=== PATIENT | female | born 1995 | race Two or more races ===

== ENCOUNTER 2024-12-07 05:37 | Emergency (ER) | payer MEDICAID, SELFPAY ==
[2024-12-07 05:39] VITALS: BMI 39.8
[2024-12-07 05:57] VITALS: BP 126/85; PULSE 82; RESP 16; TEMP 37.2; O2SAT 98
--- NOTE | 2024-12-07 06:18 | EDNOTE_ITS ---
ED Dental RME/HPI General Chief complaint: Dental/Oral/Throat Stated complaint: TOOTH PAIN Time Seen by Provider: 12/07/24 06:14 Source: patient Arrival date/time: 12/07/24 05:37 29-year-old female with no known medical history presents to the emergency room with a chief complaint of right-sided facial swelling, and right upper tooth tenderness x 2 days Mode of arrival: ambulatory Limitations: no limitations Related Data Previous Rx's ?Medication ?Instructions ?Recorded ibuprofen 800 mg tablet 800 mg PO TID PRN pain #30 t abs 03/25/19 albuterol sulfate 90 mcg/actuation 1 puff inhalation Q 4H PRN 12/25/19 aerosol inhaler (ProAir HFA) shortness of breath or wh eezing #8.5 grams azithromycin 250 mg tablet See Rx Instructions PO .COM PLEX #6 12/25/19 tabs ibuprofen 800 mg tablet 800 mg PO TID PRN pain #30 t abs 03/25/20 albuterol sulfate 90 mcg/actuation 2 puff inhalation Q 6H PRN 03/08/21 aerosol inhaler (Ventolin HFA) bronchospasm #6.7 grams promethazine-DM 6.25 mg-15 mg/5 mL 5 ml PO Q6H #240 mL 03/08/21 oral syrup amoxicillin 500 mg capsule 500 mg PO BID #20 caps 11/16 10/09 hydrocodone 5 mg-acetaminophen 325 1 tab PO BID PRN pa in #10 tabs 12/07/24 mg tablet Allergies Allergy/AdvReac Type Severity Reaction Status Date / Time No Known Allergies Allergy Verified 12/07/24 05:45 Review of Systems Review of Systems Systems Reviewed: All systems reviewed, normal except as documented Constitutional Constitutional: Reports system reviewed and no additional complaints, except as documented, Denies fatigue, Denies fever(s), Denies headache(s) and Denies weakness Eyes Eyes: Reports system reviewed and no additional complaints, except as documented, Denies blurry vision and Denies change in vision ENT Ears, Nose, Mouth, and Throat: Reports system reviewed and no additional complaints, except as documented, Reports dental pain, Denies otalgia, Denies headache(s), Denies nasal congestion, Denies throat swelling and Denies vertigo Cardiovascular Cardiovascular: Reports system reviewed and no additional complaints, except as documented, Denies chest pain, Denies dyspnea and Denies dyspnea on exertion Respiratory Respiratory: Reports system reviewed and no additional complaints, except as documented, Denies chest congestion, Denies cough, Denies dyspnea, Denies dyspnea on exertion and Denies wheezing Gastrointestinal Gastrointestinal: Reports system reviewed and no additional complaints, except as documented, Denies abdominal pain, Denies cramping, Denies nausea and Denies vomiting Genitourinary Genitourinary: Reports system reviewed and no additional complaints, except as documented Musculoskeletal Musculoskeletal: Reports system reviewed and no additional complaints, except as documented and Denies back pain Integumentary/Breasts Skin/Breast: Reports system reviewed and no additional complaints, except as documented and Denies wounds Neurologic Neurologic: Reports system reviewed and no additional complaints, except as documented, Denies confusion, Denies headache(s), Denies lack of coordination, Denies vertigo and Denies weakness Psychiatric Psychiatric: Reports system reviewed and no additional complaints, except as documented, Denies anxiety, Denies confusion, Denies depression, Denies paranoia, Denies suicidal ideation and Denies tactile hallucinations Endocrine Endocrine: Reports system reviewed and no additional complaints, except as documented and Denies fatigue Hematologic/Lymphatic Hematologic/Lymphatic: Reports system reviewed and no additional complaints, except as documented and Denies lymphadenopathy Allergic/Immunologic Allergic/Immunologic: Reports system reviewed and no additional complaints, except as documented, Denies throat swelling, Denies urticaria and Denies wheezing Past Medical History Past Medical History CARDIAC: Negative Congestive Heart Failure RESPIRATORY: Negative Chronic Obstructive Pulmonary Disease (COPD) GENITOURINARY: Negative Renal Disease ENDOCRINE: Negative Diabetes Mellitus Type 1 or Diabetes Mellitus Type 2 Social History SMOKING STATUS: Never smoker ED Exam General Limitations: Present no limitations General appearance: Present alert and in no apparent distress Head Head exam: Present atraumatic Eye Eye exam: Present normal appearance, PERRL and EOMI ENT ENT exam: Present normal exam, normal oropharynx and mucous membranes moist Expanded ENT Exam External ear exam: Present normal external inspection Mouth exam: Present normal external inspection Teeth exam: Present dental caries, fractured tooth # and dental tenderness # Teeth numbered: 2 1. Dental Tenderness Neck Neck exam: Present normal inspection, full ROM and trachea midline Chest Chest inspection: Present normal inspection and symmetric chest wall rise Respiratory Respiratory exam: Present normal lung sounds bilaterally Cardiovascular Cardiovascular exam: Present regular rate, normal rhythm and normal heart sounds Abdominal Exam Abdominal exam: Present soft and normal bowel sounds Extremities Exam Extremities exam: Present normal inspection and full ROM Back Exam Back exam: Present normal inspection and full ROM Neurological Exam Neurological exam: Present alert, oriented X3 and CN II-XII intact Psychiatric Psychiatric exam: Present normal affect and normal mood Skin Skin exam: Present warm, dry, intact and normal color Course Quality Measures none Orders Category Date Time Status Acetaminophen Tab [Tylenol ES Tab] Med 12/07/24 06:50 Discontinued 1,000 mg PO X1 ONE Clindamycin Vial [Cleocin vial] Med 12/07/24 06:17 Discontinued 600 mg IM X1 ONE HYDROcodone*/APAP 5/325 [[place] 5/325] Med 12/07/24 06:49 Discontinued 1 tab PO X1 ONE Ketorolac Inj [Toradol Inj] Med 12/07/24 06:17 Discontinued 30 mg IM X1 ONE Vital Signs Vital signs: Vital Signs Temperature 98.9 F 12/07/24 05:57 Pulse Rate 82 12/07/24 05:57 Respiratory Rate 16 12/07/24 05:57 Blood Pressure 126/85 H 12/07/24 05:57 Pulse Oximetry (%) 98 12/07/24 05:57 Oxygen Delivery Method Room Air 12/07/24 05:57 O2 saturation 98% within normal limits Dental / Oral MDM Narrative MDM Narrative:: 29-year-old female with no known medical history presents to the emergency room with a chief complaint of right-sided facial swelling, and right upper tooth tenderness x 2 days Patient is hemodynamically stable and in no apparent distress. She is afebrile not tachycardic and not tachypneic Physical examination shows tenderness and pain to the right upper molars. There is some dental tenderness with touch as well as dental fractures. Pain medication and antibiotics were given to the patient Patient was educated to follow-up with her dentist Patient was discharged and educated to follow-up with primary care provider in the next 24 to 48 hours and return to the emergency room for any evidence of worsening signs or symptoms Patient data External records reviewed:: [facility] previous records Clinical information provided by:: patient Social determinants that could affect healthcare access:: none Patient has the following chronic illnesses:: No chronic illness How is presenting disease/condition affected by chronic disease/condition?: no chronic disease Evaluation data The following diagnostics were reviewed and interpreted by me:: lab results Lab and/or radiology exams considered but not ordered:: Labs and radiology exams considered and ordered Interpretation Summary: N/A Medications / Prescriptions Medications or Prescriptions considered but not ordered:: Medication given Medication administrations:: Medication Administration History Discontinued Medications Acetaminophen (Acetaminophen 500 Mg Tablet) 1,000 mg PO X1 ONE Stop: 12/07/24 06:51 Last Admin: 12/07/24 06:58 Dose: 1,000 mg Documented By: CHERY Hydrocodone Bitart/Acetaminophen (Hydrocodone/Apap 5/325 Tablet) 1 tab PO X1 ONE Stop: 12/07/24 06:50 Clindamycin Phosphate (Clindamycin Phos Inj 150 Mg/Ml Vial 6 Ml) 600 mg IM X1 ONE Stop: 12/07/24 06:18 Last Admin: 12/07/24 06:59 Dose: 600 mg Documented By: CHERY Ketorolac Tromethamine (Ketorolac Inj 60 Mg/2 Ml Vial) 30 mg IM X1 ONE Stop: 12/07/24 06:18 Last Admin: 12/07/24 07:01 Dose: Not Given Documented By: CHERY Non-Admin Reason: Discontinued Medication given Consultations Consultation(s) initiated? (list below): No Diagnosis Dental Differential Diagnosis: gingival abscess, dental caries, toothache, dental abscess and fracture of tooth Most likely diagnosis given after review of the tests above:: Toothache Admission Indicated Admission indicated?: not indicated Admission Request Was there a request for admission?: No Disposition Plan Disposition Plan: Discharge Discharge Attestation Discharge Attestation: The patient and all family members were given an opportunity to ask questions and understood the discharge instructions. Discharge instructions specifically effects, indications for sooner follow up or return to the emergency department, and the expected course of current diagnosis. Patient condition: Stable Discharge Plan Plan Patient Disposition: HOME (Self Care) Discharge Disposition comment: Stable Prescriptions/Referrals Prescriptions/Med Rec: New amoxicillin 500 mg capsule 500 mg PO BID Qty: 20 0RF hydrocodone-acetaminophen 5-325 mg tablet 1 tab PO BID MDD 10mg PRN (Reason: pain) Qty: 10 0RF No Action ibuprofen 800 mg tablet 800 mg PO TID PRN (Reason: pain) Qty: 30 0RF ibuprofen 800 mg tablet 800 mg PO TID PRN (Reason: pain) Qty: 30 0RF azithromycin 250 mg tablet See Rx Instructions .ROUTE .COMPLEX Qty: 6 0RF Rx Instructions: take 500 mg today (day 1), then 250 mg for 4 days (days 2-5) albuterol sulfate [ProAir HFA] 90 mcg/actuation HFA aerosol inhaler 1 puff IH Q4H PRN (Reason: shortness of breath or wheezing) Qty: 8.5 0RF promethazine-DM 6.25-15 mg/5 mL syrup 5 ml PO Q6H Qty: 240 0RF albuterol sulfate [Ventolin HFA] 90 mcg/actuation HFA aerosol inhaler 2 puff INH Q6H PRN (Reason: bronchospasm) Qty: 6.7 0RF Problem List Clinical Impression: Toothache Patient/Caregiver Discharge Instructions Education Materials: ED Dental Pain Additional Instructions: Please follow-up with your dentist in the next 24 to 48 hours. Antibiotics are sent to your pharmacy please pick them up and take them as indicated For any evidence of worsening signs or symptoms return the emergency room immediately Print Language: [place] Stand Alone Forms: [employer]i Award Info., Patient Portal Info Letter
[2024-12-07] MEDS: ACETAMINOPHEN 500 MG TABLET 1000 MG PO (06:58)
[2024-12-07] MEDS: CLINDAMYCIN PHOS INJ 150 MG/ML VIAL 6 ML 600 MG IM (06:59)
== END 2024-12-07 07:23 | disposition home or self-care (01) ==
LOC: SERX 07:25
PROVIDERS: Emergency Provider Family Medicine; PCP Family Medicine
DX: K08.89 Other specified disorders of teeth and supporting structures (principal)
CPT/HCPCS: 96372; 99283; J0736; A9270

== ENCOUNTER 2024-12-09 20:07 | Emergency (ER) | payer MEDICAID, SELFPAY ==
[2024-12-09 20:07] VITALS: BMI 39.8
[2024-12-09 20:23] VITALS: BP 130/86; PULSE 81; RESP 20; TEMP 37.5; O2SAT 97
--- NOTE | 2024-12-09 20:36 | EDNOTE_ITS ---
ED Abdominal Pain RME/HPI General Chief Complaint: Abdominal Pain Stated complaint: ABDOMINAL CRAMPING, Time seen by provider: 12/09/24 20:25 Arrival date/time: 12/09/24 20:07 Source: patient Mode of arrival: ambulatory Limitations: no limitations RME / HPI RME / HPI narrative: 29-year-old female presents to the ED with a 2-day history of lower abdominal cramping and nausea. Her last menstrual period was on October 28 which was normal. She denies any fever or chills, dysuria or frequency. Related Data Previous Rx's ?Medication ?Instructions ?Recorded ibuprofen 800 mg tablet 800 mg PO TID PRN pain #30 t abs 03/25/19 albuterol sulfate 90 mcg/actuation 1 puff inhalation Q 4H PRN 12/25/19 aerosol inhaler (ProAir HFA) shortness of breath or wh eezing #8.5 grams azithromycin 250 mg tablet See Rx Instructions PO .COM PLEX #6 12/25/19 tabs ibuprofen 800 mg tablet 800 mg PO TID PRN pain #30 t abs 03/25/20 albuterol sulfate 90 mcg/actuation 2 puff inhalation Q 6H PRN 03/08/21 aerosol inhaler (Ventolin HFA) bronchospasm #6.7 grams promethazine-DM 6.25 mg-15 mg/5 mL 5 ml PO Q6H #240 mL 03/08/21 oral syrup amoxicillin 500 mg capsule 500 mg PO BID #20 caps 11/16 10/09 hydrocodone 5 mg-acetaminophen 325 1 tab PO BID PRN pa in #10 tabs 12/07/24 mg tablet Allergies Allergy/AdvReac Type Severity Reaction Status Date / Time No Known Allergies Allergy Verified 12/07/24 05:45 Review of Systems Review of Systems Systems Reviewed: All systems reviewed, normal except as documented Past Medical History Past Medical History CARDIAC: Negative Congestive Heart Failure RESPIRATORY: Negative Chronic Obstructive Pulmonary Disease (COPD) GENITOURINARY: Negative Renal Disease ENDOCRINE: Negative Diabetes Mellitus Type 1 or Diabetes Mellitus Type 2 Social History SMOKING STATUS: Never smoker ED Exam Narrative Physical exam: Alert and oriented 29-year-old female, no acute distress. Lungs are clear, regular rate and rhythm without murmurs. Abdomen is soft with minimal bilateral lower pelvic tenderness. General Limitations: Present no limitations Course Course Course Narrative: 29-year-old female presents to the ED with a 2-day history of lower abdominal cramping and nausea. Her last menstrual period was on October 28 which was normal. She denies any fever or chills, dysuria or frequency. Alert and oriented 29-year-old female, no acute distress. Lungs are clear, regular rate and rhythm without murmurs. Abdomen is soft with minimal bilateral lower pelvic tenderness. CBC reveals a white count of 13.1, normal H&H and platelets, chemistry panel is essentially normal with normal renal and liver functions. Patient is a positive. Urinalysis and quantitative hCG are currently pending. Transvaginal ultrasound: FINDINGS: Uterus 9.2 cm, intrauterine gestational sac 1.2 cm corresponds to 6 weeks 0 days. gestational age. No pole. No cardiac activity. Right ovary 4.6 cm arterial flow 14 mm cyst. Left ovary 2.6 cm arterial flow. IMPRESSION: Empty intrauterine gestational sac corresponding to 6 weeks 0 days gestational age. Short-term follow-up pelvic sonography is needed to document viability. Quality Measures none Orders Category Date Time Status US OB transvaginal Stat Exams 12/09/24 20:42 Completed ABO/RH Type Stat Lab 12/09/24 22:36 Completed Beta HCG,Quantitative Stat Lab 12/09/24 22:36 Completed CBC Stat Lab 12/09/24 22:36 Completed CMP [Comprehensive Metabolic Panel] Stat Lab 12/09/24 22:36 Completed Urinalysis Stat Lab 12/09/24 23:18 Completed Urine Culture Stat Lab 12/09/24 23:18 Received Vital Signs Vital signs: Vital Signs Temperature 99.5 F 12/09/24 20:23 Pulse Rate 81 12/09/24 20:23 Respiratory Rate 20 12/09/24 20:23 Blood Pressure 130/86 H 12/09/24 20:23 Pulse Oximetry (%) 97 12/09/24 20:23 Oxygen Delivery Method Room Air 12/09/24 20:23 Abdominal Pain MDM Patient data External records reviewed:: None Clinical information provided by:: patient Social determinants that could affect healthcare access:: none Patient has the following chronic illnesses:: None How is presenting disease/condition affected by chronic disease/condition?: no chronic disease Evaluation data The following diagnostics were reviewed and interpreted by me:: lab results and radiology exam(s) Lab and/or radiology exams considered but not ordered:: N/A Medications / Prescriptions Medications or Prescriptions considered but not ordered:: N/A Medication administrations:: None Consultations Consultation(s) initiated? (list below): No Diagnosis Differential diagnosis abdominal pain: abdominal pain and other (Threatened miscarriage) Most likely diagnosis given after review of the tests above:: Ovarian Cyst, Early Admission Indicated Admission indicated?: not indicated Admission Request Was there a request for admission?: No Disposition Plan Disposition Plan: Discharge Discharge Attestation Discharge Attestation: The patient and all family members were given an opportunity to ask questions and understood the discharge instructions. Discharge instructions specifically effects, indications for sooner follow up or return to the emergency department, and the expected course of current diagnosis. Patient condition: Stable Discharge Plan Plan Patient Disposition: HOME (Self Care) Discharge Disposition comment: Stable Prescriptions/Referrals Prescriptions/Med Rec: No Action ibuprofen 800 mg tablet 800 mg PO TID PRN (Reason: pain) Qty: 30 0RF ibuprofen 800 mg tablet 800 mg PO TID PRN (Reason: pain) Qty: 30 0RF azithromycin 250 mg tablet See Rx Instructions .ROUTE .COMPLEX Qty: 6 0RF Rx Instructions: take 500 mg today (day 1), then 250 mg for 4 days (days 2-5) albuterol sulfate [ProAir HFA] 90 mcg/actuation HFA aerosol inhaler 1 puff IH Q4H PRN (Reason: shortness of breath or wheezing) Qty: 8.5 0RF promethazine-DM 6.25-15 mg/5 mL syrup 5 ml PO Q6H Qty: 240 0RF albuterol sulfate [Ventolin HFA] 90 mcg/actuation HFA aerosol inhaler 2 puff INH Q6H PRN (Reason: bronchospasm) Qty: 6.7 0RF amoxicillin 500 mg capsule 500 mg PO BID Qty: 20 0RF hydrocodone-acetaminophen 5-325 mg tablet 1 tab PO BID MDD 10mg PRN (Reason: pain) Qty: 10 0RF Referrals: No Primary/Family,Physician [Primary Care Provider] - In 1 week Problem List Clinical Impression: Intrauterine Patient/Caregiver Discharge Instructions Education Materials: ED Abdominal Pain, Early Additional Instructions: You will need a repeat ultrasound and blood test on Tuesday. Follow-up with your primary care physician in 24 to 48 hours. Return to the ED for any new or worsening symptoms. Print Language: Polish Stand Alone Forms: [employer] Award Info., Patient Portal Info Letter PA/NUCLEAR REACTOR OPERATOR Supervising Physician PA/NUCLEAR REACTOR OPERATOR Supervising Physician: Dr. Duarte
--- NOTE | 2024-12-09 20:42 | XR_ITS ---
Examination: OB Transvaginal ultrasound of the pelvis, complete Technique: Transvaginal sonographic images pelvis performed using sultana scale imaging Exam date and time: December 09, 2024 1016 hours INDICATIONS: Pelvic cramping today FINDINGS: Uterus 9.2 cm, intrauterine gestational sac 1.2 cm corresponds to 6 weeks 0 days gestational age No pole No cardiac activity Right ovary 4.6 cm arterial flow 14 mm cyst Left ovary 2.6 cm arterial flow IMPRESSION: Empty intrauterine gestational sac corresponding to 6 weeks 0 days gestational age. Short-term follow-up pelvic sonography is needed to document viability.
[2024-12-09 22:51] LABS: Basophils % (Auto) 0 % (0-2.5); Eosinophils # (Auto) 0.2 Thou/mm3 (0.0-0.5); Eosinophils % (Auto) 1 % (0-10); Hemoglobin 12.3 g/dL (12.0-16.0); Immature Granulocytes % (Auto) 1 % (0-0); Immature Granulocytes Auto 0.07 Thou/mm3 (0.00-0.00); Lymphocytes # (Auto) 2.7 Thou/mm3 (1.0-4.8); Lymphocytes % (Auto) 21 % (10-50); Mean Corpuscular HGB Conc 33.2 g/dl (31.0-37.0); Mean Corpuscular Hemoglobin 27.6 pg (25.0-35.0); Mean Corpuscular Volume 83 fL (80-100); Monocytes # (Auto) 1.2 Thou/mm3 (0.0-0.8); Monocytes % (Auto) 9 % (0-12); Neutrophils # (Auto) 8.9 Thou/mm3 (1.8-7.7); Neutrophils % (Auto) 68 % (37-80); Nucleated Red Blood Cell % 0 /100 WBC (0); Platelet Count 368 Thou/mm3 (140-440); RDW Standard Deviation 39.6 fL (36.4-46.3); Red Blood Count 4.45 Miln/mm3 (4.00-5.20); White Blood Count 13.1 Thou/mm3 (3.6-11.0)
[2024-12-09 23:27] LABS: Alanine Aminotransferase 26 U/L (10-49); Albumin, Serum 4.7 gm/dL (3.5-5.0); Albumin/Globulin Ratio 1.5 (1.2-2.2); Alkaline Phosphatase 110 U/L (46-116); Anion Gap 10 (7-16); Aspartate Amino Transferase 23 U/L (0-34); BUN/Creatinine Ratio 7 Ratio (12-20); Bilirubin,Total 0.4 mg/dL (0.3-1.2); Blood Urea Nitrogen < 5 mg/dL (9-23); Calcium 10.2 mg/dL (8.3-10.6); Calcium (Corrected) 10.2 mg/dL (8.5-10.1); Carbon Dioxide 24.4 mMol/L (20.0-31.0); Chloride 103 mMol/L (98-107); Creatinine (Component) 0.7 mg/dL (0.6-1.3); Estimated Creatinine Clearance 132.8 mL/min (>60); Globulin 3.2 gm/dL (2.3-3.5); Glucose 81 mg/dL (74-106); Osmolality,Calculated 270 (275-295); Potassium 3.6 mMol/L (3.4-5.1); Sodium 137 mMol/L (136-145); Total Protein 7.9 gm/dL (5.7-8.2); eGFR > 60 See Note
[2024-12-09 23:28] LABS: Collection Type, Urine Clean Catch
[2024-12-09 23:57] LABS: Beta HCG,Quantitative 19774 mIU/mL (<5.0)
[2024-12-10 00:21] LABS: Bacteria,Urine Rare; Bilirubin,Urine Negative (Negative); Blood,Urine Negative (Negative); Clarity,Urine Clear (Clear/Hazy); Color,Urine Colorless (Lt Yel-Yel); Glucose, Urine Trace (Negative); Ketones,Urine Negative (Negative); Leukocyte Esterase,Urine Positive (Negative); Nitrite,Urine Negative (Negative); PH,Urine 6.5 (5.0-7.0); Protein,Urine Negative (Neg - Trace); RBC,Urine 1 /hpf (0-3); Specific Gravity,Urine 1.004 (1.001-1.035); Squamous Epithelial Cell,Urine 3 /hpf (0-5); Urobilinogen,Urine Negative mg/dL (0.0-1.0); WBC,Urine 1 /hpf (0-5)
[2024-12-10 02:36] VITALS: RESP 18
== END 2024-12-10 02:36 | disposition home or self-care (01) ==
PROVIDERS: Physician Assistant; Emergency Provider Emergency Medicine
DX: O26.891 Other specified pregnancy related conditions, first trimester (principal); R10.9 Unspecified abdominal pain; Z3A.01 Less than 8 weeks gestation of pregnancy
CPT/HCPCS: 36415; 76817; 80053; 81001; 84702; 85025; 86900; 86901; 87086; 99284

== ENCOUNTER 2024-12-26 13:42 | Emergency (ER) | payer MEDICAID, SELFPAY ==
[2024-12-26 13:43] VITALS: BMI 39.8
[2024-12-26 13:48] VITALS: BP 126/86; PULSE 90; RESP 20; TEMP 36.8; O2SAT 96
--- NOTE | 2024-12-26 13:50 | XR_ITS ---
Examination: Complete OB ultrasound, less than 14 weeks, transabdominal Date and time of exam: December 26, 2024 1434 hours INDICATIONS: Vaginal bleeding and pelvic pain beginning one hour ago Technique: Obstetrical ultrasound images less than 14 weeks performed via transabdominal imaging Findings: A normal shaped single intrauterine gestation is present in the uterus. CRL 1.4 cm corresponds to 7 weeks 5 day gestational age Cardiac motion 155 BPM Adjacent subchorionic hemorrhage 28 x 6 x 8 mm Ultrasonographic survey of visible and placental structures unremarkable. Amniotic fluid volume appears appropriate for this estimated gestational age. Right ovary 3.4 cm arterial flow Left ovary 2.7 cm arterial flow IMPRESSION: Viable intrauterine gestation 7 weeks 5 days Given the subchorionic hemorrhage, consider short-term follow-up pelvic sonography
--- NOTE | 2024-12-26 13:50 | PD.EDPREG ---
ED OB Contraction Preg RMI/HPI General Chief complaint: OB/Uterine Contractions Stated complaint: 8 WKS PREG, BLEEDING STARTED 1 HR AGO; SENT BY OB. Time Seen by Provider: 12/26/24 13:47 Source: patient Arrival date/time: 12/26/24 13:42 29-year-old female with no known medical history presents to the emergency room with a chief complaint of vaginal bleeding x 1 hour. Patient is currently 8 weeks . Mode of arrival: ambulatory Limitations: no limitations Related Data Previous Rx's ?Medication ?Instructions ?Recorded ibuprofen 800 mg tablet 800 mg PO TID PRN pain #30 tabs 03/25/19 albuterol sulfate 90 mcg/actuation 1 puff inhalation Q4H PRN 12/25/19 aerosol inhaler (ProAir HFA) shortness of breath or wheezing #8.5 grams azithromycin 250 mg tablet See Rx Instructions PO .COMPLEX #6 12/25/19 tabs ibuprofen 800 mg tablet 800 mg PO TID PRN pain #30 tabs 03/25/20 albuterol sulfate 90 mcg/actuation 2 puff inhalation Q6H PRN 03/08/21 aerosol inhaler (Ventolin HFA) bronchospasm #6.7 grams promethazine-DM 6.25 mg-15 mg/5 mL 5 ml PO Q6H #240 mL 03/08/21 oral syrup amoxicillin 500 mg capsule 500 mg PO BID #20 caps 12/07/24 hydrocodone 5 mg-acetaminophen 325 1 tab PO BID PRN pain #10 tabs 12/07/24 mg tablet cephalexin 500 mg capsule 500 mg PO BID 7 days #14 caps 12/26/24 Allergies Allergy/AdvReac Type Severity Reaction Status Date / Time No Known Allergies Allergy Verified 12/26/24 13:45 Review of Systems Review of Systems Systems Reviewed: All systems reviewed, normal except as documented Constitutional Constitutional: Reports system reviewed and no additional complaints, except as documented, Denies fatigue, Denies fever(s), Denies headache(s) and Denies weakness Eyes Eyes: Reports system reviewed and no additional complaints, except as documented, Denies blurry vision and Denies change in vision ENT Ears, Nose, Mouth, and Throat: Reports system reviewed and no additional complaints, except as documented, Denies otalgia, Denies headache(s), Denies nasal congestion, Denies throat swelling and Denies vertigo Cardiovascular Cardiovascular: Reports system reviewed and no additional complaints, except as documented, Denies chest pain, Denies dyspnea and Denies dyspnea on exertion Respiratory Respiratory: Reports system reviewed and no additional complaints, except as documented, Denies chest congestion, Denies cough, Denies dyspnea, Denies dyspnea on exertion and Denies wheezing Gastrointestinal Gastrointestinal: Reports system reviewed and no additional complaints, except as documented, Denies abdominal pain, Denies cramping, Denies nausea and Denies vomiting Genitourinary Genitourinary: Reports system reviewed and no additional complaints, except as documented, Reports abnormal vaginal bleeding and Reports pelvic pain Musculoskeletal Musculoskeletal: Reports system reviewed and no additional complaints, except as documented and Denies back pain Integumentary/Breasts Skin/Breast: Reports system reviewed and no additional complaints, except as documented and Denies wounds Neurologic Neurologic: Reports system reviewed and no additional complaints, except as documented, Denies confusion, Denies headache(s), Denies lack of coordination, Denies vertigo and Denies weakness Psychiatric Psychiatric: Reports system reviewed and no additional complaints, except as documented, Denies anxiety, Denies confusion, Denies depression, Denies paranoia, Denies suicidal ideation and Denies tactile hallucinations Endocrine Endocrine: Reports system reviewed and no additional complaints, except as documented and Denies fatigue Hematologic/Lymphatic Hematologic/Lymphatic: Reports system reviewed and no additional complaints, except as documented and Denies lymphadenopathy Allergic/Immunologic Allergic/Immunologic: Reports system reviewed and no additional complaints, except as documented, Denies throat swelling, Denies urticaria and Denies wheezing Past Medical History Past Medical History CARDIAC: Negative Congestive Heart Failure RESPIRATORY: Negative Chronic Obstructive Pulmonary Disease (COPD) GENITOURINARY: Negative Renal Disease ENDOCRINE: Negative Diabetes Mellitus Type 1 or Diabetes Mellitus Type 2 Social History SMOKING STATUS: Never smoker ED Exam General Limitations: Present no limitations General appearance: Present alert and in no apparent distress Head Head exam: Present atraumatic Eye Eye exam: Present normal appearance, PERRL and EOMI ENT ENT exam: Present normal exam, normal oropharynx and mucous membranes moist Neck Neck exam: Present normal inspection, full ROM and trachea midline Chest Chest inspection: Present normal inspection and symmetric chest wall rise Respiratory Respiratory exam: Present normal lung sounds bilaterally Cardiovascular Cardiovascular exam: Present regular rate, normal rhythm and normal heart sounds Abdominal Exam Abdominal exam: Present soft and normal bowel sounds Extremities Exam Extremities exam: Present normal inspection and full ROM Back Exam Back exam: Present normal inspection and full ROM Neurological Exam Neurological exam: Present alert, oriented X3 and CN II-XII intact Psychiatric Psychiatric exam: Present normal affect and normal mood Skin Skin exam: Present warm, dry, intact and normal color Course Quality Measures none Orders Category Date Time Status US OB <= 14 weeks fetus Stat Exams 12/26/24 13:50 Completed ABO/RH Type Stat Lab 12/26/24 14:00 Completed Beta HCG,Quantitative Stat Lab 12/26/24 14:00 Completed CBC Stat Lab 12/26/24 14:00 Completed CMP [Comprehensive Metabolic Panel] Stat Lab 12/26/24 14:00 Completed UA [Urinalysis] Stat Lab 12/26/24 14:30 Completed Vital Signs Vital signs: Vital Signs Temperature 98.3 F 12/26/24 13:48 Pulse Rate 90 12/26/24 13:48 Respiratory Rate 20 12/26/24 13:48 Blood Pressure 126/86 H 12/26/24 13:48 Pulse Oximetry (%) 96 12/26/24 13:48 Oxygen Delivery Method Room Air 12/26/24 13:48 O2 saturation 96% within normal limits OB/Uterine Contractions MDM Narrative MDM Narrative:: 29-year-old female with no known medical history presents to the emergency room with a chief complaint of vaginal bleeding x 1 hour. Patient is currently 8 weeks . Patient is hemodynamically stable and in no apparent distress. She is afebrile nontachycardic nontachypneic Physical examination shows a soft nontender abdomen. The patient states she is having some vaginal spotting when she wipes OB ultrasound was completed and shows a viable intrauterine gestation at 7 weeks and 5 days. heart tones are 155 bpm The ultrasound found a subchorionic hemorrhage. The patient was educated that she will need to have a follow-up with her DIE MACHINE OPERATOR in the next 24 to 48 hours for further management of this bleed Patient was discharged and educated to follow-up with primary care provider in the next 24 to 48 hours and return to the emergency room for any evidence of worsening signs or symptoms Patient data External records reviewed:: [facility] previous records Clinical information provided by:: patient Social determinants that could affect healthcare access:: none Patient has the following chronic illnesses:: No chronic illness How is presenting disease/condition affected by chronic disease/condition?: no chronic disease Evaluation data The following diagnostics were reviewed and interpreted by me:: lab results and radiology exam(s) Lab and/or radiology exams considered but not ordered:: Labs and radiology exams considered and ordered Interpretation Summary: OB ultrasound-Findings: A normal shaped single intrauterine gestation is present in the uterus. CRL 1.4 cm corresponds to 7 weeks 5 day gestational age Cardiac motion 155 BPM Adjacent subchorionic hemorrhage 28 x 6 x 8 mm Ultrasonographic survey of visible and placental structures unremarkable. Amniotic fluid volume appears appropriate for this estimated gestational age. Right ovary 3.4 cm arterial flow Left ovary 2.7 cm arterial flow IMPRESSION: Viable intrauterine gestation 7 weeks 5 days Given the subchorionic hemorrhage, consider short-term follow-up pelvic sonography Medications / Prescriptions Medications or Prescriptions considered but not ordered:: No medication given Medication administrations:: No medication given Consultations Consultation(s) initiated? (list below): No Diagnosis OB Contractions Differential Diagnosis: other (Vaginal bleeding/pelvic pain/threatened /spontaneous /subchorionic hemorrhage) Most likely diagnosis given after review of the tests above:: Subchorionic hemorrhage Admission Indicated Admission indicated?: not indicated Explain why admission is indicated or not indicated:: N/A Admission Request Was there a request for admission?: No Disposition Plan Disposition Plan: Discharge Discharge Attestation Discharge Attestation: The patient and all family members were given an opportunity to ask questions and understood the discharge instructions. Discharge instructions specifically effects, indications for sooner follow up or return to the emergency department, and the expected course of current diagnosis. Patient condition: Stable Discharge Plan Plan Patient Disposition: HOME (Self Care) Discharge Disposition comment: Stable Prescriptions/Referrals Prescriptions/Med Rec: New cephalexin 500 mg capsule 500 mg PO BID 7 Days Qty: 14 0RF No Action ibuprofen 800 mg tablet 800 mg PO TID PRN (Reason: pain) Qty: 30 0RF ibuprofen 800 mg tablet 800 mg PO TID PRN (Reason: pain) Qty: 30 0RF azithromycin 250 mg tablet See Rx Instructions .ROUTE .COMPLEX Qty: 6 0RF Rx Instructions: take 500 mg today (day 1), then 250 mg for 4 days (days 2-5) albuterol sulfate [ProAir HFA] 90 mcg/actuation HFA aerosol inhaler 1 puff IH Q4H PRN (Reason: shortness of breath or wheezing) Qty: 8.5 0RF promethazine-DM 6.25-15 mg/5 mL syrup 5 ml PO Q6H Qty: 240 0RF albuterol sulfate [Ventolin HFA] 90 mcg/actuation HFA aerosol inhaler 2 puff INH Q6H PRN (Reason: bronchospasm) Qty: 6.7 0RF amoxicillin 500 mg capsule 500 mg PO BID Qty: 20 0RF hydrocodone-acetaminophen 5-325 mg tablet 1 tab PO BID MDD 10mg PRN (Reason: pain) Qty: 10 0RF Referrals: Darian Gibson MD [Primary Care Provider] - In 1 week Problem List Clinical Impression: Subchorionic hemorrhage in first trimester, Urinary tract infection Patient/Caregiver Discharge Instructions Education Materials: Bleeding During Early Additional Instructions: Please follow-up with your DIE MACHINE OPERATOR in the next 24 to 48 hours Your ultrasound was completed and shows a in good standing. heart tones are 155 bpm and you are currently 7 weeks and 5 days. The bleeding that you are having is a subchorionic hemorrhage. Please follow-up with your DIE MACHINE OPERATOR for further management. Our radiologist recommends short-term follow-up given the subchorionic hemorrhage. If you are unable to see your DIE MACHINE OPERATOR in the next 3 to 4 days you can return to the emergency room for another ultrasound and blood work. For any evidence of worsening signs or symptoms return to the emergency room immediately Print Language: Bengali Stand Alone Forms: Moni Award Info., Patient Portal Info Letter HERNANDEZ/JOSEFINA Supervising Physician HERNANDEZ/JOSEFINA Supervising Physician: Dr. Combs
[2024-12-26 14:07] LABS: Basophils # (Auto) 0.1 Thou/mm3 (0.0-0.2); Basophils % (Auto) 0 % (0-2.5); Eosinophils # (Auto) 0.1 Thou/mm3 (0.0-0.5); Eosinophils % (Auto) 1 % (0-10); Hematocrit 36.3 % (36.0-46.0); Hemoglobin 12.5 g/dL (12.0-16.0); Immature Granulocytes % (Auto) 1 % (0-0); Immature Granulocytes Auto 0.09 Thou/mm3 (0.00-0.00); Lymphocytes % (Auto) 26 % (10-50); Mean Corpuscular HGB Conc 34.4 g/dl (31.0-37.0); Mean Corpuscular Hemoglobin 27.7 pg (25.0-35.0); Mean Corpuscular Volume 81 fL (80-100); Monocytes # (Auto) 0.8 Thou/mm3 (0.0-0.8); Monocytes % (Auto) 7 % (0-12); Neutrophils # (Auto) 7.5 Thou/mm3 (1.8-7.7); Neutrophils % (Auto) 65 % (37-80); Nucleated Red Blood Cell % 0 /100 WBC (0); Platelet Count 466 Thou/mm3 (140-440); RDW Standard Deviation 37.2 fL (36.4-46.3); Red Blood Count 4.51 Miln/mm3 (4.00-5.20); White Blood Count 11.5 Thou/mm3 (3.6-11.0)
[2024-12-26 14:31] LABS: Alanine Aminotransferase 11 U/L (10-49); Albumin, Serum 4.5 gm/dL (3.5-5.0); Albumin/Globulin Ratio 1.6 (1.2-2.2); Alkaline Phosphatase 76 U/L (46-116); Anion Gap 11 (7-16); BUN/Creatinine Ratio 9 Ratio (12-20); Bilirubin,Total 0.3 mg/dL (0.3-1.2); Blood Urea Nitrogen 9 mg/dL (9-23); Calcium 9.4 mg/dL (8.3-10.6); Calcium (Corrected) 9.4 mg/dL (8.5-10.1); Carbon Dioxide 23.3 mMol/L (20.0-31.0); Chloride 104 mMol/L (98-107); Globulin 2.8 gm/dL (2.3-3.5); Glucose 99 mg/dL (74-106); Osmolality,Calculated 274 (275-295); Potassium 3.8 mMol/L (3.4-5.1); Sodium 138 mMol/L (136-145); Total Protein 7.3 gm/dL (5.7-8.2); eGFR > 60 See Note
[2024-12-26 14:48] LABS: Collection Type, Urine Clean Catch
[2024-12-26 15:11] LABS: Bilirubin,Urine Negative (Negative); Blood,Urine 3+ (Negative); Glucose, Urine Negative (Negative); Ketones,Urine Trace (Negative); Leukocyte Esterase,Urine Positive (Negative); Nitrite,Urine Negative (Negative); PH,Urine 5.5 (5.0-7.0); Protein,Urine 1+ (Neg - Trace); RBC,Urine 3517 /hpf (0-3); Specific Gravity,Urine 1.023 (1.001-1.035); Squamous Epithelial Cell,Urine 40 /hpf (0-5); Urobilinogen,Urine Negative mg/dL (0.0-1.0); WBC,Urine 76 /hpf (0-5)
[2024-12-26 15:16] LABS: Beta HCG,Quantitative 124452 mIU/mL (<5.0)
[2024-12-26 15:20] LABS: Clarity,Urine Hazy (Clear/Hazy); Color,Urine Lt-Yellow (Lt Yel-Yel)
[2024-12-26 15:58] VITALS: BP 128/77; PULSE 78; RESP 18; TEMP 36.7; O2SAT 98
== END 2024-12-26 15:59 | disposition home or self-care (01) ==
PROVIDERS: Nurse Practitioner Family; Emergency Provider Emergency Medicine; PCP Family Medicine
DX: O20.8 Other hemorrhage in early pregnancy (principal); O23.41 Unspecified infection of urinary tract in pregnancy, first trimester; N39.0 Urinary tract infection, site not specified; Z3A.08 8 weeks gestation of pregnancy
CPT/HCPCS: 36415; 76801; 80053; 81001; 84702; 85025; 86900; 86901; 99284

== ENCOUNTER 2025-02-01 11:56 | Emergency (ER) | payer MEDICAID, SELFPAY ==
[2025-02-01 12:23] VITALS: BP 125/85; PULSE 75; RESP 19; TEMP 36.9; O2SAT 98; BMI 40.7
[2025-02-01 13:09] LABS: Basophils # (Auto) 0.0 Thou/mm3 (0.0-0.2); Basophils % (Auto) 0 % (0-2.5); Eosinophils # (Auto) 0.1 Thou/mm3 (0.0-0.5); Eosinophils % (Auto) 1 % (0-10); Hematocrit 34.6 % (36.0-46.0); Hemoglobin 11.7 g/dL (12.0-16.0); Immature Granulocytes Auto 0.05 Thou/mm3 (0.00-0.00); Lymphocytes # (Auto) 2.6 Thou/mm3 (1.0-4.8); Lymphocytes % (Auto) 24 % (10-50); Mean Corpuscular HGB Conc 33.8 g/dl (31.0-37.0); Mean Corpuscular Hemoglobin 27.1 pg (25.0-35.0); Mean Corpuscular Volume 80 fL (80-100); Monocytes # (Auto) 0.5 Thou/mm3 (0.0-0.8); Monocytes % (Auto) 4 % (0-12); Neutrophils # (Auto) 7.6 Thou/mm3 (1.8-7.7); Neutrophils % (Auto) 70 % (37-80); Nucleated Red Blood Cell # 0.00 Thou/mm3 (0.00-0.00); Nucleated Red Blood Cell % 0 /100 WBC (0); Platelet Count 318 Thou/mm3 (140-440); RDW Standard Deviation 38.2 fL (36.4-46.3); Red Blood Count 4.31 Miln/mm3 (4.00-5.20); White Blood Count 10.8 Thou/mm3 (3.6-11.0)
[2025-02-01 13:13] LABS: Collection Type, Urine Clean Catch
[2025-02-01 13:24] LABS: Alanine Aminotransferase < 7 U/L (10-49); Albumin, Serum 4.5 gm/dL (3.5-5.0); Albumin/Globulin Ratio 1.7 (1.2-2.2); Alkaline Phosphatase 53 U/L (46-116); Anion Gap 11 (7-16); Aspartate Amino Transferase 15 U/L (0-34); BUN/Creatinine Ratio 8 Ratio (12-20); Bilirubin,Total 0.5 mg/dL (0.3-1.2); Blood Urea Nitrogen 5 mg/dL (9-23); Calcium 10.0 mg/dL (8.3-10.6); Calcium (Corrected) 10.0 mg/dL (8.5-10.1); Carbon Dioxide 23.2 mMol/L (20.0-31.0); Chloride 102 mMol/L (98-107); Creatinine (Component) 0.6 mg/dL (0.6-1.3); Estimated Creatinine Clearance 156.9 mL/min (>60); Globulin 2.7 gm/dL (2.3-3.5); Glucose 83 mg/dL (74-106); Lipase 35 U/L (12-53); Osmolality,Calculated 268 (275-295); Potassium 3.8 mMol/L (3.4-5.1); Sodium 136 mMol/L (136-145); Total Protein 7.2 gm/dL (5.7-8.2); eGFR > 60 See Note
[2025-02-01 13:35] LABS: Bacteria,Urine Rare; Bilirubin,Urine Negative (Negative); Blood,Urine Negative (Negative); Clarity,Urine Clear (Clear/Hazy); Color,Urine Lt-Yellow (Lt Yel-Yel); Glucose, Urine Negative (Negative); Ketones,Urine 1+ (Negative); Leukocyte Esterase,Urine Negative (Negative); Nitrite,Urine Negative (Negative); PH,Urine 6.0 (5.0-7.0); Protein,Urine Negative (Neg - Trace); RBC,Urine 1 /hpf (0-3); Specific Gravity,Urine 1.010 (1.001-1.035); Squamous Epithelial Cell,Urine 3 /hpf (0-5); Urobilinogen,Urine Negative mg/dL (0.0-1.0); WBC,Urine 1 /hpf (0-5)
--- NOTE | 2025-02-01 13:46 | PD.EDDIZZY ---
ED Dizzyness RME/HPI General Chief Complaint: Dizziness Stated Complaint: sent by OB, 14 weeks OB, dizzy Time Seen by Provider: 02/01/25 12:27 Source: patient Arrival date/time: 02/01/25 11:56 29-year-old female with no known medical history presents to the emergency room with a chief complaint of dizziness and nausea. Patient is currently 14 weeks and was sent to the emergency room by her MARKETING ANALYTICS MANAGER to rule out dehydration. Mode of arrival: ambulatory Limitations: no limitations Related Data Previous Rx's ?Medication ?Instructions ?Recorded ibuprofen 800 mg tablet 800 mg PO TID PRN pain #30 tabs 03/25/19 albuterol sulfate 90 mcg/actuation 1 puff inhalation Q4H PRN 12/25/19 aerosol inhaler (ProAir HFA) shortness of breath or wheezing #8.5 grams azithromycin 250 mg tablet See Rx Instructions PO .COMPLEX #6 12/25/19 tabs ibuprofen 800 mg tablet 800 mg PO TID PRN pain #30 tabs 03/25/20 albuterol sulfate 90 mcg/actuation 2 puff inhalation Q6H PRN 03/08/21 aerosol inhaler (Ventolin HFA) bronchospasm #6.7 grams promethazine-DM 6.25 mg-15 mg/5 mL 5 ml PO Q6H #240 mL 03/08/21 oral syrup amoxicillin 500 mg capsule 500 mg PO BID #20 caps 12/07/24 hydrocodone 5 mg-acetaminophen 325 1 tab PO BID PRN pain #10 tabs 12/07/24 mg tablet ondansetron 4 mg disintegrating 4 mg PO Q8H PRN nausea and 02/01/25 tablet vomiting #14 tabs Allergies Allergy/AdvReac Type Severity Reaction Status Date / Time No Known Allergies Allergy Verified 02/01/25 12:01 Review of Systems Review of Systems Systems Reviewed: All systems reviewed, normal except as documented Constitutional Constitutional: Reports system reviewed and no additional complaints, except as documented, Denies fatigue, Denies fever(s), Denies headache(s) and Reports weakness Eyes Eyes: Reports system reviewed and no additional complaints, except as documented, Denies blurry vision and Denies change in vision ENT Ears, Nose, Mouth, and Throat: Reports system reviewed and no additional complaints, except as documented, Denies otalgia, Denies headache(s), Denies nasal congestion, Denies throat swelling and Reports vertigo Cardiovascular Cardiovascular: Reports system reviewed and no additional complaints, except as documented, Denies chest pain, Denies dyspnea and Denies dyspnea on exertion Respiratory Respiratory: Reports system reviewed and no additional complaints, except as documented, Denies chest congestion, Denies cough, Denies dyspnea, Denies dyspnea on exertion and Denies wheezing Gastrointestinal Gastrointestinal: Reports system reviewed and no additional complaints, except as documented, Denies abdominal pain, Denies cramping, Denies nausea and Denies vomiting Genitourinary Genitourinary: Reports system reviewed and no additional complaints, except as documented Musculoskeletal Musculoskeletal: Reports system reviewed and no additional complaints, except as documented and Denies back pain Integumentary/Breasts Skin/Breast: Reports system reviewed and no additional complaints, except as documented and Denies wounds Neurologic Neurologic: Reports system reviewed and no additional complaints, except as documented, Denies confusion, Denies headache(s), Denies lack of coordination, Reports vertigo and Reports weakness Psychiatric Psychiatric: Reports system reviewed and no additional complaints, except as documented, Denies anxiety, Denies confusion, Denies depression, Denies paranoia, Denies suicidal ideation and Denies tactile hallucinations Endocrine Endocrine: Reports system reviewed and no additional complaints, except as documented and Denies fatigue Hematologic/Lymphatic Hematologic/Lymphatic: Reports system reviewed and no additional complaints, except as documented and Denies lymphadenopathy Allergic/Immunologic Allergic/Immunologic: Reports system reviewed and no additional complaints, except as documented, Denies throat swelling, Denies urticaria and Denies wheezing ED Exam General Limitations: Present no limitations General appearance: Present alert and in no apparent distress Head Head exam: Present atraumatic, normocephalic and normal inspection Eye Eye exam: Present normal appearance, PERRL and EOMI ENT ENT exam: Present normal exam, normal oropharynx and mucous membranes moist Neck Neck exam: Present normal inspection, full ROM and trachea midline Chest Chest inspection: Present normal inspection and symmetric chest wall rise Respiratory Respiratory exam: Present normal lung sounds bilaterally Cardiovascular Cardiovascular exam: Present regular rate, normal rhythm and normal heart sounds; Absent bradycardia, tachycardia or irregular rhythm Abdominal Exam Abdominal exam: Present soft and normal bowel sounds; Absent tenderness Extremities Exam Extremities exam: Present normal inspection and full ROM Back Exam Back exam: Present normal inspection and full ROM Neurological Exam Neurological exam: Present alert, oriented X3, CN II-XII intact, normal gait and reflexes normal Expanded Neurological Exam Patient oriented to: Present person, place and time Speech: Present fluid speech Cranial nerves: Normal: EOM function (II, III, IV, ) and facial sensation (V) Cerebellar function: Present normal gait Motor strength - LUE: 5/5 Motor strength - RUE: 5/5 Motor strength - LLE: 5/5 Motor strength - RLE: 5/5 Coma scale eye opening: spontaneous Coma scale motor response: obeys commands Coma scale verbal response: oriented Coma scale total: 15 Psychiatric Psychiatric exam: Present normal affect and normal mood Skin Skin exam: Present warm, dry, intact and normal color Course Quality Measures none Orders Category Date Time Status CBC Stat Lab 02/01/25 12:47 Completed CMP [Comprehensive Metabolic Panel] Stat Lab 02/01/25 12:47 Completed Lipase Stat Lab 02/01/25 12:47 Completed UA [Urinalysis] Stat Lab 02/01/25 13:01 Completed Urine Culture Stat Lab 02/01/25 13:01 Received Vital Signs Vital signs: Vital Signs Temperature 98.4 F 02/01/25 12:23 Pulse Rate 75 02/01/25 12:23 Respiratory Rate 19 02/01/25 12:23 Blood Pressure 125/85 H 02/01/25 12:23 Pulse Oximetry (%) 98 02/01/25 12:23 Oxygen Delivery Method Room Air 02/01/25 12:23 Dizziness MDM Narrative MDM Narrative:: 29-year-old female with no known medical history presents to the emergency room with a chief complaint of dizziness and nausea. Patient is currently 14 weeks and was sent to the emergency room by her MARKETING ANALYTICS MANAGER to rule out dehydration. Patient is hemodynamically stable and in no apparent distress Patient has a soft nontender abdomen. Patient is a GCS of 15 she is alert and oriented x 3 pupils are PERRLA EOMs are intact. CBC CMP are within normal limits there is no anemia electrolyte imbalance or any dehydration. Patient has a strong and regular rhythm lung sounds are clear bilaterally Patient was discharged and educated to follow-up with primary care provider in the next 24 to 48 hours and return to the emergency room for any evidence of worsening signs or symptoms Patient data External records reviewed:: [facility] previous records Clinical information provided by:: patient Social determinants that could affect healthcare access:: none Patient has the following chronic illnesses:: No chronic illness How is presenting disease/condition affected by chronic disease/condition?: no chronic disease Evaluation data The following diagnostics were reviewed and interpreted by me:: lab results and radiology exam(s) Lab and/or radiology exams considered but not ordered:: Labs and radiology exams considered and ordered Interpretation Summary: N/A Medications / Prescriptions Medications or Prescriptions considered but not ordered:: No medication given Medication administrations:: No medication given Consultations Consultation(s) initiated? (list below): No Diagnosis Dizziness Differential Diagnosis: benign paroxysmal positional vertigo, orthostatic hypotension, cerebrovascular accident and other (Dizziness) Most likely diagnosis given after review of the tests above:: Dizziness Admission Indicated Admission indicated?: not indicated Admission Request Was there a request for admission?: No Disposition Plan Disposition Plan: Discharge Discharge Attestation Discharge Attestation: The patient and all family members were given an opportunity to ask questions and understood the discharge instructions. Discharge instructions specifically effects, indications for sooner follow up or return to the emergency department, and the expected course of current diagnosis. Patient condition: Stable Discharge Plan Plan Patient Disposition: HOME (Self Care) Discharge Disposition comment: Stable Prescriptions/Referrals Prescriptions/Med Rec: New ondansetron 4 mg tablet,disintegrating 4 mg PO Q8H PRN (Reason: nausea and vomiting) Qty: 14 0RF No Action ibuprofen 800 mg tablet 800 mg PO TID PRN (Reason: pain) Qty: 30 0RF ibuprofen 800 mg tablet 800 mg PO TID PRN (Reason: pain) Qty: 30 0RF azithromycin 250 mg tablet See Rx Instructions .ROUTE .COMPLEX Qty: 6 0RF Rx Instructions: take 500 mg today (day 1), then 250 mg for 4 days (days 2-5) albuterol sulfate [ProAir HFA] 90 mcg/actuation HFA aerosol inhaler 1 puff IH Q4H PRN (Reason: shortness of breath or wheezing) Qty: 8.5 0RF promethazine-DM 6.25-15 mg/5 mL syrup 5 ml PO Q6H Qty: 240 0RF albuterol sulfate [Ventolin HFA] 90 mcg/actuation HFA aerosol inhaler 2 puff INH Q6H PRN (Reason: bronchospasm) Qty: 6.7 0RF amoxicillin 500 mg capsule 500 mg PO BID Qty: 20 0RF hydrocodone-acetaminophen 5-325 mg tablet 1 tab PO BID MDD 10mg PRN (Reason: pain) Qty: 10 0RF Referrals: Darian Gibson MD [Primary Care Provider] - In 1 week Problem List Clinical Impression: Dizziness, Patient/Caregiver Discharge Instructions Education Materials: ED Dizziness, Uncertain Cause Additional Instructions: Please follow-up with your MARKETING ANALYTICS MANAGER in the next 24 to 48 hours Your blood work was completed and was negative for any acute findings. There is no anemia, dehydration or any electrolyte imbalance For any evidence of worsening signs or symptoms return to the emergency room immediately Please continue to take your care Print Language: Citizen Of [place] Stand Alone Forms: Moni Award Info., Patient Portal Info Letter PA/COAL PIPELINE OPERATOR Supervising Physician PA/COAL PIPELINE OPERATOR Supervising Physician: Dr. Bradshaw
== END 2025-02-01 15:02 | disposition home or self-care (01) ==
PROVIDERS: Nurse Practitioner Family; Emergency Provider Family Medicine; PCP Family Medicine
DX: O26.892 Other specified pregnancy related conditions, second trimester (principal); Z3A.14 14 weeks gestation of pregnancy; R42 Dizziness and giddiness
CPT/HCPCS: 36415; 80053; 81001; 83690; 85025; 87086; 99283

== ENCOUNTER 2025-04-20 05:24 | Emergency (ER) | payer MEDICAID, SELFPAY ==
[2025-04-20 05:25] VITALS: BMI 40.7
[2025-04-20 05:29] VITALS: BP 121/83; PULSE 74; RESP 18; TEMP 37.2; O2SAT 98
--- NOTE | 2025-04-20 06:25 | XR_ITS ---
Examination: Duplex scan of the lower extremity, unilateral left Date and time of exam: April 20, 2025, 0758 hrs. Indications: Left lower leg swelling 2 weeks Technique: Duplex scan of the extremity veins using B-mode/grayscale imaging and Doppler spectral analysis and color flow Attention is directed to internal echogenicity, compression and augmentation involving these veins, color flow assessment, spectral analysis Findings: Major deep venous structures in the extremity demonstrate normal course and caliber. There is no evidence of deep vein thrombosis. Normal color flow and spectral analysis Impression: Negative for DVT..
--- NOTE | 2025-04-20 06:28 | EDNOTE_ITS ---
ED Extremity Problem RME/HPI General Chief complaint: Extremity Problem,Nontraumatic Stated complaint: BUMP TO LEFT CALF AREA Time Seen by Provider: 04/20/25 06:13 Source: patient Arrival date/time: 04/20/25 05:24 Mode of arrival: ambulatory Limitations: no limitations RME / HPI RME / HPI Narrative: DR. ILDA CHURCHILL ED EVALUATION: Patient is a 29-year-old female that seen in the emergency department with concerns for left lower extremity swelling. Patient is currently , denies any abdominal pain chest pain vaginal bleeding, vaginal discharge. States that her left lower extremity has been tender from behind her hamstring for a few days. Her grocery specialist told her to come into the emergency department to get an ultrasound to assess for possible DVT. Denies drugs alcohol smoking. Medications she takes her vitamins. Related Data Previous Rx's ?Medication ?Instructions ?Recorded ibuprofen 800 mg tablet 800 mg PO TID PRN pain #30 t abs 03/25/19 albuterol sulfate 90 mcg/actuation 1 puff inhalation Q 4H PRN 12/25/19 aerosol inhaler (ProAir HFA) shortness of breath or wh eezing #8.5 grams azithromycin 250 mg tablet See Rx Instructions PO .COM PLEX #6 12/25/19 tabs ibuprofen 800 mg tablet 800 mg PO TID PRN pain #30 t abs 03/25/20 albuterol sulfate 90 mcg/actuation 2 puff inhalation Q 6H PRN 03/08/21 aerosol inhaler (Ventolin HFA) bronchospasm #6.7 grams promethazine-DM 6.25 mg-15 mg/5 mL 5 ml PO Q6H #240 mL 03/08/21 oral syrup amoxicillin 500 mg capsule 500 mg PO BID #20 caps 11/16 10/09 hydrocodone 5 mg-acetaminophen 325 1 tab PO BID PRN pa in #10 tabs 12/07/24 mg tablet ondansetron 4 mg disintegrating 4 mg PO Q8H PRN nausea and 02/01/25 tablet vomiting #14 tabs Allergies Allergy/AdvReac Type Severity Reaction Status Date / Time No Known Allergies Allergy Verified 04/20/25 05:25 Review of Systems Review of Systems Systems Reviewed: All systems reviewed, normal except as documented Past Medical History Social History SMOKING STATUS: Never smoker SUBSTANCE USE: does not use ALCOHOL: Never ED Exam General Limitations: Present no limitations General appearance: Present alert Head Head exam: Present atraumatic and normocephalic Eye Eye exam: Present normal appearance and PERRL ENT ENT exam: Present normal exam and normal oropharynx Neck Neck exam: Present normal inspection and full ROM Chest Chest inspection: Present normal inspection and symmetric chest wall rise Respiratory Respiratory exam: Present normal lung sounds bilaterally Cardiovascular Cardiovascular exam: Present regular rate Abdominal Exam Abdominal exam: Present soft; Absent distention or organomegaly Extremities Exam Extremities exam: Present calf tenderness (Left lower extremity, no significant swelling appreciated, bilateral lower extremities warm and well-perfused, left lower extremity with palpable pulse) Neurological Exam Neurological exam: Present alert and oriented X3 Psychiatric Psychiatric exam: Present normal affect Skin Skin exam: Present warm, dry and intact Course Quality Measures none Orders Category Date Time Status US venous doppler LE LT Stat Exams 04/20/25 06:25 Completed Vital Signs Vital signs: Vital Signs Temperature 98.9 F 04/20/25 05:29 Pulse Rate 74 04/20/25 05:29 Respiratory Rate 18 04/20/25 05:29 Blood Pressure 121/83 04/20/25 05:29 Pulse Oximetry (%) 98 04/20/25 05:29 Oxygen Delivery Method Room Air 04/20/25 05:29 Extremity Problem MDM Narrative MDM Narrative:: Patient is a 29-year-old female seen emerged primary concerns for left lower extremity pain. Vital signs and exam as listed. Concern for DVT, less likely cellulitis, abscess, deep space lower extremity infection given patient without fever, no significant swelling, no erythema. Ordered ultrasound of the lower extremity. Reports of patient's , abdomen is soft nice and nontender, no vaginal discharge no bleeding. Ultrasound lower extremity without evidence of DVT. On reevaluation patient hemodynamically stable not distressed will discharge to home close return precautions follow-up with your primary care doctor Naida Squires am scribing for and in the presence of Dr. Rai. Patient data External records reviewed:: [facility] previous records Clinical information provided by:: patient Social determinants that could affect healthcare access:: none Patient has the following chronic illnesses:: None How is presenting disease/condition affected by chronic disease/condition?: no chronic disease Evaluation data The following diagnostics were reviewed and interpreted by me:: radiology exam(s) Lab and/or radiology exams considered but not ordered:: None Interpretation Summary: See MDM Medications / Prescriptions Medications or Prescriptions considered but not ordered:: None Medication administrations:: See above Consultations Consultation(s) initiated? (list below): No Diagnosis Extremity Problem Differential Diagnosis: other (DVT, musculoskeletal strain, and cellulitis.) Most likely diagnosis given after review of the tests above:: Left leg pain Admission Indicated Admission indicated?: not indicated Admission Request Was there a request for admission?: No Disposition Plan Disposition Plan: Discharge Discharge Attestation Discharge Attestation: The patient and all family members were given an opportunity to ask questions and understood the discharge instructions. Discharge instructions specifically effects, indications for sooner follow up or return to the emergency department, and the expected course of current diagnosis. Patient condition: Stable Discharge Plan Plan Patient Disposition: HOME (Self Care) Prescriptions/Referrals Prescriptions/Med Rec: No Action ibuprofen 800 mg tablet 800 mg PO TID PRN (Reason: pain) Qty: 30 0RF ibuprofen 800 mg tablet 800 mg PO TID PRN (Reason: pain) Qty: 30 0RF azithromycin 250 mg tablet See Rx Instructions .ROUTE .COMPLEX Qty: 6 0RF Rx Instructions: take 500 mg today (day 1), then 250 mg for 4 days (days 2-5) albuterol sulfate [ProAir HFA] 90 mcg/actuation HFA aerosol inhaler 1 puff IH Q4H PRN (Reason: shortness of breath or wheezing) Qty: 8.5 0RF promethazine-DM 6.25-15 mg/5 mL syrup 5 ml PO Q6H Qty: 240 0RF albuterol sulfate [Ventolin HFA] 90 mcg/actuation HFA aerosol inhaler 2 puff INH Q6H PRN (Reason: bronchospasm) Qty: 6.7 0RF ondansetron 4 mg tablet,disintegrating 4 mg PO Q8H PRN (Reason: nausea and vomiting) Qty: 14 0RF amoxicillin 500 mg capsule 500 mg PO BID Qty: 20 0RF hydrocodone-acetaminophen 5-325 mg tablet 1 tab PO BID MDD 10mg PRN (Reason: pain) Qty: 10 0RF Referrals: Brian Rico FNP [Primary Care Provider] - In 1 week Problem List Clinical Impression: Acute leg pain Patient/Caregiver Discharge Instructions Education Materials: ED MILDRED Wrap Additional Instructions: Your ultrasound today did not identify any evidence of a blood clot in your legs. It is important that you walk frequently throughout the day, and stretch to prevent the formation of blood clots. Please follow-up with your primary care doctor within 1 to 2 days. Return immediately if you have worsening symptoms or new symptoms of concern. Print Language: Kazakh Stand Alone Forms: Moni Award Info., Patient Portal Info Letter
[2025-04-20 08:42] VITALS: BP 114/80; PULSE 78; RESP 18; TEMP 37; O2SAT 98
== END 2025-04-20 10:44 | disposition home or self-care (01) ==
PROVIDERS: Emergency Provider Emergency Medicine
DX: O99.891 Other specified diseases and conditions complicating pregnancy (principal); R22.42 Localized swelling, mass and lump, left lower limb; Z3A.00 Weeks of gestation of pregnancy not specified
CPT/HCPCS: 93971; 99283

== ENCOUNTER 2025-07-14 19:23 | Observation (INO) | payer MEDICAID, SELFPAY ==
[2025-07-14] VITALS (13 sets, daily range): BP systolic 120; BP diastolic 70–71; PULSE 79–95; RESP 16–99; TEMP 36.9; O2SAT 97–99; BMI 42.3
[2025-07-14] MEDS: NITROFURANTOIN MACRO 100 MG CAPSULE PO (20:29)
== END 2025-07-14 20:40 | disposition home or self-care (01) ==
PROVIDERS: Admitting Provider Specialist; Visit Provider Specialist
DX: O47.1 False labor at or after 37 completed weeks of gestation (principal); Z3A.37 37 weeks gestation of pregnancy
CPT/HCPCS: 59025; 59899; A9270